=== PATIENT | male | born 1945 | race Caucasian/White ===

== ENCOUNTER 2019-09-10 14:38 | Inpatient (IN) | payer MEDICARE, OTHER ==
[~2019-09-10] VITALS: Ht 198.1 cm; Wt 144.7 kg
--- NOTE | 2019-09-10 14:40 | NUR ---
anna, from board and care, c/o r leg numbness started 11am, denies pain, to er bed 7, hooked to monitor, changed to hosp gown, warm blanket provided, awaiting md barber.
--- NOTE | 2019-09-10 14:48 | NUR ---
CODE STROKE ACTIVATED.
--- NOTE | 2019-09-10 14:54 | NUR ---
patient taken to ct.
[2019-09-10 14:57] LABS: BASOPHILS % (AUTO) 0.5 % (0.0-2.0); EOSINOPHILS % (AUTO) 1.8 % (0.0-6.0); HEMATOCRIT 50 % (39-51); HEMOGLOBIN 16.9 g/dL (13.5-17.5); LYMPHOCYTES # (AUTO) 2.6 /CMM (0.8-4.8); LYMPHOCYTES % (AUTO) 25.9 % (20.0-44.0); MEAN CORPUSCULAR HGB CONC 34 g/dl (31.0-36.0); MEAN CORPUSCULAR VOLUME 90 fL (80-96); MONOCYTES # (AUTO) 0.9 /CMM (0.1-1.30); MONOCYTES % (AUTO) 8.7 % (2.0-12.0); NEUTROPHILS # (AUTO) 6.3 /CMM (1.8-8.9); NEUTROPHILS % (AUTO) 63.1 % (43.0-81.0); PLATELET COUNT (AUTO) 173 /CMM (150-450); RED BLOOD CELL COUNT(AUTO) 5.54 MIL/uL (4.5-6.0)
[2019-09-10] MEDS ORDERED: IV NS 0.9% 250 ML IV ONE (14:58)
[2019-09-10] MEDS ORDERED: CT SWABBABLE VALVE TRANS SET 1 EA INFUS.SET MC ONE (14:58)
[2019-09-10] MEDS ORDERED: IOHEXOL-350 100 ML VIAL IV ONE (14:58)
[2019-09-10 15:01] LABS: POTASSIUM 4.1 mmol/L (3.5-5.1)
[2019-09-10 15:03] LABS: CALCIUM, SERUM 9.3 mg/dL (8.5-10.1); CARBON DIOXIDE 30 mmol/L (21-32); CHLORIDE 103 mmol/L (98-107); CREATININE 0.9 mg/dL (0.6-1.3); GLUCOSE 126 mg/dL (74-106); SODIUM SERUM 140 mmol/L (136-145); UREA NITROGEN, BLOOD 16 mg/dL (7-18)
--- NOTE | 2019-09-10 15:07 | NUR ---
BACK FROM CT
[2019-09-10 15:10] LABS: CHOLESTEROL 194 mg/dL (<200); HDL CHOLESTEROL 36 mg/dL (40-60); LDL 135 mg/dL (0-99); TRIGLYCERIDES 109 mg/dL (30-150)
[2019-09-10] MEDS ORDERED: HYDR-4384 PO (15:35)
[2019-09-10] MEDS ORDERED: METF-440 PO (15:35)
[2019-09-10] MEDS ORDERED: GLIP5TAB13 PO (15:35)
[2019-09-10] MEDS ORDERED: ACET-2605 PO (15:35)
[2019-09-10] MEDS ORDERED: ASPI-1152 PO (15:35)
[2019-09-10] MEDS ORDERED: ATEN25TA PO (15:35)
[2019-09-10] MEDS ORDERED: FAMO20TA8 PO (15:35)
[2019-09-10] MEDS ORDERED: AMLO5TAB9 PO (15:35)
[2019-09-10] MEDS ORDERED: TAMS-12 PO (15:35)
[2019-09-10] MEDS ORDERED: NYST15OI TP (15:35)
[2019-09-10] MEDS ORDERED: CLOP75TA15 PO (15:35)
--- NOTE | 2019-09-10 15:35 | NUR ---
telestroke with Dr Aurora Dodge
--- NOTE | 2019-09-10 15:45 | NUR ---
not a candidate for TPA per dr. Luna
--- NOTE | 2019-09-10 15:53 | NUR ---
CALLED NURSING SUP FOR TELE BED.
--- NOTE | 2019-09-10 16:53 | NUR ---
NURSING SUP GAVE TELE BED 308-1.
--- NOTE | 2019-09-10 17:01 | NUR ---
CALLED [facility].
--- NOTE | 2019-09-10 18:12 | NUR ---
REPORT GIVEN TO MAYI GRIFFITHS OF TELE UNIT
[2019-09-10] MEDS ORDERED: HYDROCODONE/APAP 10/325MG 1 EA TABLET ONE (18:54)
[2019-09-10] MEDS: HYDROCODONE/APAP 10/325MG 1 EA TABLET PO PRN (18:55)
--- NOTE | 2019-09-10 18:56 | NUR ---
US TECH AT BEDSIDE
[2019-09-10 19:13] LABS: ALBUMIN 3.7 g/dL (3.4-5.0); BILIRUBIN,DIRECT 0.1 mg/dL (0.0-0.2); BILIRUBIN,TOTAL 0.6 mg/dL (0.2-1.0); TOTAL PROTEIN, SERUM 7.6 g/dL (6.4-8.2)
[2019-09-10 19:14] LABS: THYROID STIMULATING HORMONE 4.36 uIU/mL (0.358-3.74)
--- NOTE | 2019-09-10 19:35 | NUR ---
RECEIVED PT FROM ER RECEIVED PT FROM ER VIA KnownADALID. ADMITTING DX OF R/O STROKE, HX OF HTN, CVA IN 2019, DM TYPE 2. NO CARDIAC OR RESP DISTRESS NOTED. NO SOB. NO COMPLAINTS OF PAIN OR DISCOMFORT AT THIS TIME. ORIENTED PT TO THE UNIT, AND CALL LIGHT. PT IS AOX4, CONTINENT OF B/B. WEAKNESS NOTED ON BLE, MOSTLY ON THE RLE. AMBULATORY WITH ASSISTANCE. PT IS VERY PLEASANT. DIRECTOR OF NEUROLOGY ATTACHED. WITH NSR WITH 1ST DEGREE AV BLOCK. VS NOTED AT BP= 167/86, P- 70, O2 SAT- 96% ON RA, T- 97.9, RR-18.
[2019-09-10 20:35] VITALS: BP 167/86
[2019-09-10] MEDS: ATORVASTATIN 40 MG TABLET PO SCH (22:00)
[2019-09-10] MEDS ORDERED: BLOOD SUGAR DIAGNOSTIC 1 EACH STRIP IN SCH (22:00)
[2019-09-10] MEDS: TAMSULOSIN 0.4 MG CAP.SR.24H PO SCH (22:10)
[2019-09-10] MEDS: BLOOD SUGAR DIAGNOSTIC 1 EACH STRIP IN SCH (22:12)
--- NOTE | 2019-09-10 22:13 | NUR ---
MS/TELE/RN PATIENT REFUSED ATORVASTATIN, PER PATIENT HE IS ALLERGIC TO STATIN. ENTER THE MED ALLERGY.
--- NOTE | 2019-09-10 22:37 | NUR ---
MS/TELE/RN ON INITIAL SHIFT ROUNDS AT 1930, PATIENT WAS IN BED AWAKE, ALERT, ORIENTE X 4, COMFORTABLE, NO C/O PAIN, NO SIGNS OF DISTRESS NOTED. ADMISSION ASSESSMENT WAS DONE AT 1930, STROKE ASSESSMENT WAS DONE PER INTERVENTION, MILD FACIAL DROOPING WHEN ASKED TO SMILE AND SHOW TEETH WAS NOTED, NO SLURRING OF SPEECH NOTED, NURSING BEDSIDE SWALLOW EVAL WAS DONE PER PROTOCOL AND PASSED, PUDDING WAS GIVEN PER PATIENT,S REQUEST, NO SIGNS OF ASPIRATION WAS NOTED, TAUGHT THE USE OF CALL LIGHT VERBALIZED UNDERSTANDING, PLACED IT AT BEDSIDE WITHIN REACH. FALL PRECAUTIONS INSTITUTED PER PROTOCOL, WILL CLOSELY MONITOR PATIENT.
[2019-09-11 00:17] VITALS: BP 145/84
[2019-09-11] MEDS: HYDROCODONE/APAP 10/325MG 1 EA TABLET PO PRN ×3 (02:03→22:15)
[2019-09-11 03:17] LABS: BASOPHILS % (AUTO) 0.7 % (0.0-2.0); EOSINOPHILS % (AUTO) 1.6 % (0.0-6.0); HEMATOCRIT 46 % (39-51); HEMOGLOBIN 15.3 g/dL (13.5-17.5); MEAN CORPUSCULAR HGB CONC 33 g/dl (31.0-36.0); MEAN CORPUSCULAR VOLUME 88 fL (80-96); MONOCYTES % (AUTO) 9.4 % (2.0-12.0); NEUTROPHILS % (AUTO) 65.3 % (43.0-81.0); PLATELET COUNT (AUTO) 157 /CMM (150-450); RED BLOOD CELL COUNT(AUTO) 5.19 MIL/uL (4.5-6.0); WHITE BLOOD COUNT (AUTO) 9.5 K/uL (4.3-11.0)
[2019-09-11 03:18] LABS: BASOPHILS # (AUTO) 0.1 /CMM (0.0-0.2); LYMPHOCYTES # (AUTO) 2.2 /CMM (0.8-4.8); MONOCYTES # (AUTO) 0.9 /CMM (0.1-1.30); NEUTROPHILS # (AUTO) 6.2 /CMM (1.8-8.9)
[2019-09-11 03:27] LABS: CALCIUM, SERUM 8.9 mg/dL (8.5-10.1); CREATININE 0.9 mg/dL (0.6-1.3); POTASSIUM 4.6 mmol/L (3.5-5.1)
[2019-09-11 04:07] VITALS: BP 155/74
[2019-09-11] MEDS: BLOOD SUGAR DIAGNOSTIC 1 EACH STRIP IN SCH ×3 (06:15→18:37)
--- NOTE | 2019-09-11 06:30 | NUR ---
MS/TELE/RN PATIENT IS AWAKE AT THIS TIME, COMFORTABLE, NO C/O PAIN, NO SIGNS OF DISTRESS NOTED, VERBALIZED HE SLEPT GOOD, NO CHANGE IN CLINICAL CONDITION, ALL NEEDS ATTENDED AT THIS TIME, WILL CONTINUE TO MONITOOR.
[2019-09-11] MEDS ORDERED: PANTOPRAZOLE 40 MG TABLET.DR PO SCH (07:30)
[2019-09-11 08:00] VITALS: BP 133/76
--- NOTE | 2019-09-11 08:10 | NUR ---
ASSOCIATE DIRECTOR FINANCIAL AID NOTES RECEIVED PATIENT IN BED, A/O X 4. PATIENT ON ROOM AIR BREATHING EVENLY WITH NO SIGNS OF DISTRESS OR SOB PRESENT. HL LAC # 18 PRESENT AND INTACT, FLUSHING WELL. PATIENT ON CARDIAC MONITORING WITH A CURRENT READING OF NORMAL SINUS RHYTHM OF 71. SAFETY PRECAUTIONS IN PLACE; BED IN LOW POSITION AND LOCKED, RAILS UP X 2, HOB ELEVATED AT 45 DEGREES, CALL LIGHT WITHIN REACH. WILL CONTINUE TO MONITOR PATIENT.
[2019-09-11] MEDS: PANTOPRAZOLE 40 MG TABLET.DR PO SCH (08:31)
[2019-09-11] MEDS: CLOPIDOGREL BISULFATE 75 MG TABLET PO SCH (08:32)
[2019-09-11] MEDS: ATENOLOL 25 MG TABLET PO SCH (08:32)
[2019-09-11] MEDS: AMLODIPINE BESYLATE 5 MG TABLET PO SCH (08:33)
[2019-09-11] MEDS: DOCUSATE SODIUM 100 MG CAPSULE PO SCH (08:33)
[2019-09-11] MEDS: glipiZIDE 5 MG TABLET PO SCH ×2 (08:33→17:33)
[2019-09-11] MEDS: ASPIRIN EC 81 MG TABLET.DR PO SCH (08:55)
--- NOTE | 2019-09-11 12:05 | NUR ---
Social service consult requested by MD for stroke protocol. Per chart review and MD notes, pt is a 73-year-old male with a past medical history of hypertension, DM, previous CVA June 2019 with left-sided weakness. ACCOUNT SUPPORT ANALYST met with the pt bedside. ACCOUNT SUPPORT ANALYST introduced self and explained her role. Pt is alert and oriented x4. Pt is cooperative and very pleasant during the assessment. Pt reports that he resides at [facility] and care located at [address] [place] [address] in [place]. Pt has a history of stroke. Pt's last stroke was on 2018. Pt. appears to be in good spirits. Pt reports to be mildly depressed but states not enough to get on medication. Pt.denies suicidal ideations at this time. Pt reports, he requires some assistance with his ADLS such as for showering and bowel movement. Pt. ambulates with a walker but as a wheelchair for doctor appointments. Pt reports to have a good appetite. Pt states, he has always had trouble sleeping through the night and gets approximately 5 to 6 hours of sleep daily. Pt does report to have slept well last night. ACCOUNT SUPPORT ANALYST provided pt with active listening and supportive counseling. hot stamp operator completed PHQ-9 assessment. Pt's PHQ score is a 2. ACCOUNT SUPPORT ANALYST updated ANSELMO Mclean with aforementioned information. No other social service needs are requested at this time. ACCOUNT SUPPORT ANALYST is available, if needed. Addendum: 09/11/19 at 1210 by JENNIFER BRAGG Pt's emergency contact is his [id number] Griselda Kiranluma .
--- NOTE | 2019-09-11 15:14 | NUR ---
GEOGRAPHICAL HISTORIAN NOTES PATIENT COMPLAINED OF LOWER BACK PAIN (6 OUT OF 10) AND REQUESTED SOMETHING FOR PAIN. PRN ORDER OF NORCO ADMINISTERED PER MD ORDER. WILL CONTINUE TO MONITOR PATIENT.
[2019-09-11 16:00] VITALS: BP 150/88
--- NOTE | 2019-09-11 19:03 | NUR ---
MS RN NOTES PATIENT CURRENTLY IN BED, AWAKE, A/O X4. PATIENT ON ROOM AIR BREATHING EVENLY WITH NO SIGNS OF DISTRESS AT THIS MOMENT. PATIENT DENIES ANY PAIN. HL LAC # 18 PRESENT, INTACT AND FLUSHING WELL. ALL NEEDS ATTENDED TOO. SAFETY PRECAUTIONS IN PLACE: BED IN LOW POSITION AND LOCKED, RAILS UP X 2, CALL LIGHT WITHIN REACH. WILL ENDORSE TO MANAGER DEVELOPMENTAL NURSE.
--- NOTE | 2019-09-11 19:43 | NUR ---
MS RN RECEIVED PATIENT IN BED A/O X 3,WATCHING TV, STABLE AND NOT IN DISTRESS. WILL CONTINUE TO MONITOR
[2019-09-11 20:00] VITALS: BP 134/70
[2019-09-11] MEDS: ATORVASTATIN 40 MG TABLET PO SCH (22:00)
[2019-09-11] MEDS: TAMSULOSIN 0.4 MG CAP.SR.24H PO SCH (22:14)
--- NOTE | 2019-09-11 22:51 | NUR ---
MS RN RELAYED HOSPITALIST SPOKE TO YAA CHAIDEZ REGARDING PT ALLERGY TO STATIN PER YAA LET THE DAY SHIFT RN FOLLOW UP PRIMARY MD FOR NOW PUT REFUSED MED. READ BACK AND VERIFIED ORDERS NOTED AND CARRIED OUT. Addendum: 09/11/19 at 8034 by MU UGALDE RN MED LIPITOR DUE AT 2200
[2019-09-12] MEDS: BLOOD SUGAR DIAGNOSTIC 1 EACH STRIP IN SCH ×4 (00:12→17:54)
--- NOTE | 2019-09-12 06:42 | NUR ---
PT SLEPT WELL, NEEDS ATTENDED AND ANTICIPATED, KEPT CLEAN, DRY AND COMFORTABLE AT ALL TIMES. AM CARE RENDERED. NO APPARENT DISTRESS, PT STABLE. NO SIGNIFICANT CHANGES, SAFETY MEASURES IN PLACE. WILL ENDORSE TO NEXT SHIFT POC.
[2019-09-12 07:10] LABS: BASOPHILS % (AUTO) 0.3 % (0.0-2.0); EOSINOPHILS % (AUTO) 2.5 % (0.0-6.0); HEMATOCRIT 47 % (39-51); HEMOGLOBIN 15.6 g/dL (13.5-17.5); LYMPHOCYTES # (AUTO) 2.6 /CMM (0.8-4.8); LYMPHOCYTES % (AUTO) 28.8 % (20.0-44.0); MEAN CORPUSCULAR HGB CONC 33 g/dl (31.0-36.0); MEAN CORPUSCULAR VOLUME 88 fL (80-96); MONOCYTES # (AUTO) 0.9 /CMM (0.1-1.30); MONOCYTES % (AUTO) 10.1 % (2.0-12.0); NEUTROPHILS # (AUTO) 5.3 /CMM (1.8-8.9); NEUTROPHILS % (AUTO) 58.3 % (43.0-81.0); PLATELET COUNT (AUTO) 162 /CMM (150-450); RED BLOOD CELL COUNT(AUTO) 5.31 MIL/uL (4.5-6.0); WHITE BLOOD COUNT (AUTO) 9.2 K/uL (4.3-11.0)
[2019-09-12] MEDS: PANTOPRAZOLE 40 MG TABLET.DR PO SCH (07:53)
[2019-09-12] MEDS: HYDROCODONE/APAP 10/325MG 1 EA TABLET PO PRN (07:55)
[2019-09-12 08:00] VITALS: BP 147/88
--- NOTE | 2019-09-12 08:00 | NUR ---
MS RN OPENING NOTES Received Patient awake and resting bed. A/O x 4. Patient stated pain level of 9/10 on Left Hip. Administered [place] 10-325mg PO per Patients request. Will continue to monitor. Otherwise Patient in stable condition. Breathing even and unlabored on room air with no respiratory distress. 18g PIV on LAC clean, intact, patent and flushing well. Safety precautions in place. Bed locked and set to lowest position with side rails x 2 up. All needs rendered at this time. Call light within reach. Will continue to monitor.
[2019-09-12 08:09] LABS: CARBON DIOXIDE 26 mmol/L (21-32); CHLORIDE 102 mmol/L (98-107); GLUCOSE 100 mg/dL (74-106); PHOSPHORUS 3.3 mg/dL (2.5-4.9); POTASSIUM 4.1 mmol/L (3.5-5.1); SODIUM SERUM 138 mmol/L (136-145); UREA NITROGEN, BLOOD 12 mg/dL (7-18)
[2019-09-12] MEDS: ASPIRIN EC 81 MG TABLET.DR PO SCH (09:17)
[2019-09-12] MEDS: DOCUSATE SODIUM 100 MG CAPSULE PO SCH (09:18)
[2019-09-12] MEDS: glipiZIDE 5 MG TABLET PO SCH ×2 (09:18→17:52)
[2019-09-12] MEDS: ATENOLOL 25 MG TABLET PO SCH (09:19)
[2019-09-12] MEDS: CLOPIDOGREL BISULFATE 75 MG TABLET PO SCH (09:19)
[2019-09-12] MEDS: AMLODIPINE BESYLATE 5 MG TABLET PO SCH (09:19)
--- NOTE | 2019-09-12 10:11 | NUR ---
WOUND CARE CONSULT: PT PRESENTS WITH LEFT ABDOMINAL FOLD REDNESS/RASH AND VERY DRY SKIN TO LOWER LEGS AND FEET, PRESENT ON ADMISSION. RECOMMENDATIONS MADE FOR SKIN CARE AND PROTECTION. DISCUSSED WITH NURSING STAFF AND PT. WILL SEE PRN. VIKR IN AGREEMENT WITH PLAN OF CARE. PT IS CURRENTLY CONTINENT. Addendum: 09/12/19 at 1012 by FUAD RICE WNDNU Amended: Links added.
[2019-09-12] MEDS ORDERED: Z GUARD REMEDY 2 OZ OINT TP PRN (10:30)
[2019-09-12] MEDS ORDERED: VITAMINS A AND D 56.7 GM TUBE TP SCH (10:30)
[2019-09-12] MEDS ORDERED: Z GUARD REMEDY 2 OZ OINT TP SCH (10:30)
[2019-09-12 16:00] VITALS: BP 140/70
[2019-09-12] MEDS ORDERED: CLOTRIMAZOLE 1% 15 GM TUBE TP SCH (17:00)
--- NOTE | 2019-09-12 17:55 | NUR ---
MS RN NOTES Taken picture of left abdominal fold redness at this time. Picture placed in chart. Patient in stable condition. Will continue to monitor.
[2019-09-12] MEDS ORDERED: ATOR40TA PO (18:17)
--- NOTE | 2019-09-12 19:13 | NUR ---
MS RN CLOSING NOTES Patient awake and resting bed. A/O x 4. VS stable with no acute distress. Breathing even and unlabored on room air with no respiratory distress. Denies pain. 18g PIV on LAC clean, intact, patent and flushing well. Medication and reconciliation and discharge orders reviewed and explained to Patient. Patient verbalized understanding. Safety precautions in place. Bed locked and set to lowest position with side rails x 2 up. All needs rendered at this time. Call light within reach. Will endorse plan of care to oncoming shift.
--- NOTE | 2019-09-12 19:40 | NUR ---
MS RN OPENING NOTES PATIENT RESTING COMFORTABLY IN BED; AWAKE A/O X4; NO SOB, NO S/S OF ACUTE RESPIRATORY DISTRESS NOTED; BREATHING EVEN AND UNLABORED; PATIENT AWAITING DISCHARGE. PHOTOS TAKEN AND FILED IN PATIENT BINDER; L AC # 18 INTACT AND PATENT, WILL REMOVE PRIOR TO DISCHARGE; SAFETY PRECAUTIONS IN PLACE; CALL LIGHT WITHIN REACH; WILL CONTINUE TO MONITOR
[2019-09-12 20:00] VITALS: BP 152/80
--- NOTE | 2019-09-12 20:30 | NUR ---
MS RN NOTES IV SITE REMOVED; IV TIP INTACT; NO S/S OF REDNESS OR BLEEDING NOTED; BELONGINGS ACCOUNTED FOR; PATIENT ACCOMPANIED DOWNSTAIRS WITH COMMODITY SUPERVISOR AND STEP-DAUGHTER; PATIENT DISCHARGED.
== END 2019-09-12 20:45 | disposition home or self-care (01) | DRG 74 ==
LOC: ER 14:38 → TELE 17:08 → MED 09-11 10:11
PROVIDERS: ADMIT Hospitalist; ATTEND Registered Nurse
DX: E11.42 Type 2 diabetes mellitus with diabetic polyneuropathy (principal); I69.354 Hemiplegia and hemiparesis following cerebral infarction affecting left non-dominant side; J90 Pleural effusion, not elsewhere classified; R29.702 NIHSS score 2; E66.9 Obesity, unspecified; E78.5 Hyperlipidemia, unspecified; Z68.36 Body mass index [BMI] 36.0-36.9, adult; N40.0 Benign prostatic hyperplasia without lower urinary tract symptoms; I10 Essential (primary) hypertension; Z88.8 Allergy status to other drugs, medicaments and biological substances; Z79.899 Other long term (current) drug therapy; Z79.84 Long term (current) use of oral hypoglycemic drugs; Z79.02 Long term (current) use of antithrombotics/antiplatelets; Z79.82 Long term (current) use of aspirin; I67.2 Cerebral atherosclerosis; I65.22 Occlusion and stenosis of left carotid artery
CPT/HCPCS: 36415; 70450-TC; 70496-TC; 70498-TC; 70551-TC; 71045-TC; 80048-TC; 80061-TC; 80076-TC; 82962-TC; 83735-TC; 83880; 84100-TC; 84439-TC; 84443-TC; 84484-TC; 85025-TC; 85652-TC; 85730-TC; 87081-TC; 92611-TC; 93307-TC; 97116-TC; 97530-TC; G0378; J7050; Q9967